=== PATIENT | male | born 1965 | race Caucasian/White ===

== ENCOUNTER 2019-03-15 07:03 | Day surgery (SDC) | payer MEDICAID ==
[2019-03-15] MEDS ORDERED: MIDAZOLAM HCL 5 MG/5 ML VIAL ONE ×2 (07:53→07:54)
[2019-03-15] MEDS ORDERED: MEPERIDINE HCL/PF 100 MG/ML AMP ONE (07:54)
[2019-03-15] MEDS ORDERED: SIMETHICONE 40 MG/0.6 ML ML ONE (07:54)
[2019-03-15 10:49] VITALS: BP_SYST 103
== END 2019-03-15 11:10 | disposition home or self-care (01) ==
LOC: SDS 07:03 → SMU 07:25 → SDS 11:10
PROVIDERS: ATTEND Internal Medicine Gastroenterology
DX: Z12.11 Encounter for screening for malignant neoplasm of colon (principal); D64.9 Anemia, unspecified; K64.8 Other hemorrhoids; K29.70 Gastritis, unspecified, without bleeding; R13.10 Dysphagia, unspecified; K21.9 Gastro-esophageal reflux disease without esophagitis; I11.0 Hypertensive heart disease with heart failure; I50.9 Heart failure, unspecified; E66.01 Morbid (severe) obesity due to excess calories; I25.10 Atherosclerotic heart disease of native coronary artery without angina pectoris; R11.10 Vomiting, unspecified; Z79.01 Long term (current) use of anticoagulants; Z79.899 Other long term (current) drug therapy; Z95.5 Presence of coronary angioplasty implant and graft; Z98.0 Intestinal bypass and anastomosis status
CPT/HCPCS: 43239; 45378; 88305; 88312; 88313; 99152; 99153; G0378; J2175; J2250